=== PATIENT | female | born 1975 | race Caucasian/White ===

== ENCOUNTER 2022-12-07 11:31 | Outpatient (CLI) | payer MEDICAID, SELFPAY | END 2022-12-07 11:32 | disposition home or self-care (01) | PROVIDERS: PCP Family Medicine; Visit Provider Family Medicine | DX: E66.9 Obesity, unspecified (principal); E78.5 Hyperlipidemia, unspecified; Z13.1 Encounter for screening for diabetes mellitus; Z13.29 Encounter for screening for other suspected endocrine disorder | CPT/HCPCS: 80048; 80061; 84439; 84443 ==

== ENCOUNTER 2023-01-25 06:55 | Outpatient (CLI) | payer OTHER, SELFPAY ==
--- NOTE | 2023-01-25 08:04 | W.ANESCHARGE ---
Anesthesia Charges Start Date/Time Anesthesia Start Date: 01/25/23 Anesthesia Start Time: 07:43 Stop Date/Time Anesthesia Stop Date: 01/25/23 Anesthesia Stop Time: 08:10
--- NOTE | 2023-01-25 08:13 | W.ANESCHARGE ---
Anesthesia Charges Start Date/Time Anesthesia Start Date: 01/25/23 Anesthesia Start Time: 07:43 Stop Date/Time Anesthesia Stop Date: 01/25/23 Anesthesia Stop Time: 08:10
== END 2023-01-25 06:56 | disposition home or self-care (01) ==
LOC: OP CLINIC 06:55
PROVIDERS: PCP Family Medicine; Visit Provider Internal Medicine
DX: Z12.11 Encounter for screening for malignant neoplasm of colon (principal); K63.5 Polyp of colon; K64.8 Other hemorrhoids
CPT/HCPCS: 00811; 45380; 88305; J2704

== ENCOUNTER 2024-01-01 15:11 | Outpatient (CLI) | payer OTHER, SELFPAY | END 2024-01-01 15:12 | disposition home or self-care (01) | PROVIDERS: PCP Family Medicine; Visit Provider Family Medicine | DX: E78.5 Hyperlipidemia, unspecified (principal); E66.9 Obesity, unspecified; Z13.1 Encounter for screening for diabetes mellitus | CPT/HCPCS: 80048; 80061 ==

== ENCOUNTER 2024-11-12 13:23 | Outpatient (CLI) | payer OTHER, SELFPAY | END 2024-11-12 13:24 | disposition home or self-care (01) | LOC: NFLDREF 11-15 08:32 | PROVIDERS: PCP Family Medicine; Referring Provider Family Medicine; Visit Provider Emergency Medicine | DX: N39.0 Urinary tract infection, site not specified (principal); N12 Tubulo-interstitial nephritis, not specified as acute or chronic; B96.20 Unspecified Escherichia coli [E. coli] as the cause of diseases classified elsewhere | CPT/HCPCS: 87086 ==

== ENCOUNTER 2025-03-02 13:16 | Outpatient (CLI) | payer OTHER, SELFPAY | END 2025-03-02 13:17 | disposition home or self-care (01) | PROVIDERS: PCP Family Medicine; Visit Provider Emergency Medicine | DX: E78.2 Mixed hyperlipidemia (principal); I10 Essential (primary) hypertension; N91.2 Amenorrhea, unspecified | CPT/HCPCS: 80048; 83001 ==

== ENCOUNTER 2025-07-02 12:46 | Outpatient (CLI) | payer OTHER, SELFPAY ==
--- NOTE | 2025-07-02 13:00 | CRLHL7_ITS ---
For Patients: As a result of the Century Cures Act, medical imaging exams and procedure reports are released immediately into your electronic medical record. You may view this report before your referring provider. If you have questions, please contact your health care provider. INDICATION: BILATERAL SCREENING MAMMOGRAM, ASYMPTOMATIC 49 Y/O FEMALE COMPARISON: 01/19/2020, 06/09/2015 TECHNIQUE: Digital mammogram in CC and MLO projections including computer-aided detection (CAD) and tomosynthesis. BREAST COMPOSITION: There are scattered areas of fibroglandular density. FINDINGS: No suspicious findings. ASSESSMENT: BI-RADS 1 Negative RECOMMENDATION: Annual screening mammogram. A lay language report of this examination will be provided to the patient. Dictated by: Linda Wellington MD @ 07/06/2025 09:04:09 (Electronically Signed)
== END 2025-07-02 12:47 | disposition home or self-care (01) ==
LOC: MAMMO 12:47
PROVIDERS: PCP Family Medicine; Visit Provider Emergency Medicine
DX: Z12.31 Encounter for screening mammogram for malignant neoplasm of breast (principal)
CPT/HCPCS: 77063; 77067